=== PATIENT | female | born 1945 | race Caucasian/White ===

== ENCOUNTER 2017-04-13 17:28 | Emergency (ER) | payer MEDICARE, OTHER ==
[~2017-04-13] VITALS: Ht 172.7 cm; Wt 74.8 kg
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
[2017-04-13 18:00] LABS: BASOPHILS # (AUTO) 0.2 /CMM (0.0-0.2); BASOPHILS % (AUTO) 1.7 % (0.0-2.0); EOSINOPHILS # (AUTO) 0.5 /CMM (0.0-0.7); EOSINOPHILS % (AUTO) 4.9 % (0.0-6.0); HEMATOCRIT 38 % (33-45); HEMOGLOBIN 12.9 g/dL (11.5-14.8); LYMPHOCYTES # (AUTO) 1.3 /CMM (0.8-4.8); MEAN CORPUSCULAR HEMOGLOBIN 31 PG (26.0-33.0); MEAN CORPUSCULAR HGB CONC 34 g/dl (31.0-36.0); MEAN CORPUSCULAR VOLUME 93 fL (82-100); MONOCYTES # (AUTO) 0.6 /CMM (0.1-1.30); NEUTROPHILS # (AUTO) 7.5 /CMM (1.8-8.9); NEUTROPHILS % (AUTO) 74.4 % (43.0-81.0); PLATELET COUNT (AUTO) 194 /CMM (150-450); RDW COEFFICIENT OF VARIATION 14.3 (11.5-15.0); RED BLOOD CELL COUNT(AUTO) 4.16 MIL/uL (4.0-5.2); WHITE BLOOD COUNT (AUTO) 10.1 K/uL (4.3-11.0)
[2017-04-13] MEDS ORDERED: MAG30ORA PO (18:03)
[2017-04-13] MEDS ORDERED: DOLU50TA PO (18:03)
[2017-04-13] MEDS ORDERED: DOCU-141 PO (18:03)
[2017-04-13] MEDS ORDERED: ACET-868 PO (18:03)
[2017-04-13] MEDS ORDERED: CALC-7 PO (18:03)
[2017-04-13] MEDS ORDERED: FLUP5TAB PO (18:03)
[2017-04-13] MEDS ORDERED: ASCO500T9 PO (18:03)
[2017-04-13] MEDS ORDERED: PALI234D IM (18:03)
[2017-04-13] MEDS ORDERED: OLAN10TA3 PO (18:03)
[2017-04-13] MEDS ORDERED: LEVO150T8 PO (18:03)
[2017-04-13] MEDS ORDERED: ALBU8.5H8 IH (18:03)
[2017-04-13] MEDS ORDERED: DIPH25CA6 PO (18:03)
[2017-04-13] MEDS ORDERED: ASPI-1169 PO (18:03)
[2017-04-13] MEDS ORDERED: PRAV20TA4 PO (18:03)
[2017-04-13] MEDS ORDERED: EMTR1TAB17 PO (18:04)
[2017-04-13 18:16] LABS: ACETAMINOPHEN < 10 ug/ml (10-30); ALANINE AMINOTRANSFERASE 6 U/L (12-78); ALBUMIN 3.4 g/dL (3.4-5.0); ALCOHOL, BLOOD < 3 mg/dL (0-0); ALKALINE PHOSPHATASE 94 U/L (46-116); ASPARTATE AMINOTRANSFERASE 16 U/L (15-37); BILIRUBIN,DIRECT 0.1 mg/dL (0.0-0.2); BILIRUBIN,TOTAL 0.3 mg/dL (0.2-1.0); CALCIUM, SERUM 9.4 mg/dL (8.5-10.1); CARBON DIOXIDE 28 mmol/L (21-32); CHLORIDE 106 mmol/L (98-107); CREATININE 1.8 mg/dL (0.6-1.3); GLUCOSE 92 mg/dL (74-106); SODIUM SERUM 143 mmol/L (136-145); TOTAL PROTEIN, SERUM 8.1 g/dL (6.4-8.2); UREA NITROGEN, BLOOD 27 mg/dL (7-18)
--- NOTE | 2017-04-13 18:41 | NUR ---
PT PLACED ON BEDPAN AT THIS TIME
--- NOTE | 2017-04-13 18:45 | NUR ---
CALLED [facility] INSPECTION SUPERVISOR.
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
[2017-04-13 19:52] LABS: APPEARANCE,URINE Clear (CLEAR); BILIRUBIN,URINE Negative (NEGATIVE); BLOOD, URINE Negative Ery/uL (NEGATIVE); COLOR,URINE Yellow (YELLOW); KETONES,URINE Negative (NEGATIVE); LEUKOCYTE ESTERASE ,URINE Negative (NEGATIVE); NITRITE, URINE Negative (NEGATIVE); PH,URINE 5.5 (5.0-8.0); PROTEIN,URINE Negative (NEGATIVE); UGLUCOSE Negative (NEGATIVE); UROBILINOGEN,URINE 0.2 EU/dL (0.2)
--- NOTE | 2017-04-13 19:58 | NUR ---
PT'S SISTER ARRIVED AND IS TALKING TO THE NURSING ENVIRONMENT COORDINATOR, AVNI.
--- NOTE | 2017-04-13 20:10 | NUR ---
I UPDATED THE SISTER ON THE PT'S STATUS AND WHAT HAS BEEN DONE TO DATE.
--- NOTE | 2017-04-13 20:30 | NUR ---
ИРИНА MCLAIN ARRIVED AND IS SPEAKING TO THE PT'S SISTER/CONSERVATOR.
--- NOTE | 2017-04-13 20:48 | NUR ---
ИРИНА MCLAIN IS AT THE BEDSIDE SPEAKING TO THE PT. PT'S SISTER IS IN THE LOBBY
--- NOTE | 2017-04-13 21:17 | NUR ---
ИРИНА [facility] AND SISTER LEFT. PT TO GO BACK TO [facility] VIA AMBULANCE.
--- NOTE | 2017-04-13 21:17 | NUR ---
CALLED [facility] FOR TRANSPORT ETA OF 2330 WAS GIVEN.
--- NOTE | 2017-04-13 22:17 | NUR ---
[facility] ARRIVED AND PT IS BEING D/C'D HOME VIA AMBULANCE. Patient discharged to home in stable condition. Written and verbal after care instructions given. Patient verbalizes understanding of instruction. VSS.
[2017-04-13 22:19] VITALS: BP 138/78
== END 2017-04-13 22:21 | disposition home or self-care (01) ==
LOC: ER 17:32
DX: R45.1 Restlessness and agitation (principal); Z00.8 Encounter for other general examination; Z79.82 Long term (current) use of aspirin
CPT/HCPCS: 36415; 80048-TC; 80076-TC; 80305; 81000-TC; 85025-TC; A4606; G0480; Z7610